=== PATIENT | male | born 1950 | race Caucasian/White ===

== ENCOUNTER → 2017-10-17 | Outpatient (CLI) | payer MEDICARE ==
[~2017-10-17] MED LIST: ASPI81TA50 PO; GLUC-32 PO; METO25TA91 PO; MULT-26 PO; OMEG1CAP23 PO; REGADENOSON 0.4 MG/5 ML SYRINGE ONE
== END | disposition home or self-care (01) ==
LOC: CFH 12:25
PROVIDERS: ATTEND Internal Medicine Cardiovascular Disease
DX: I21.19 ST elevation (STEMI) myocardial infarction involving other coronary artery of inferior wall (principal); I10 Essential (primary) hypertension; I25.9 Chronic ischemic heart disease, unspecified; R00.1 Bradycardia, unspecified
CPT/HCPCS: 78452; 93017; A9502; J2785

== ENCOUNTER 2017-11-29 05:41 | Day surgery (SDC) | payer MEDICARE ==
[~2017-11-29] VITALS: Ht 188 cm; Wt 111.4 kg
[~2017-11-29 05:41] MED LIST changes: -REGADENOSON 0.4 MG/5 ML SYRINGE ONE
[2017-11-29] MEDS ORDERED: SODIUM CHLORIDE 0.9% 1,000 ML IV ONE (06:08)
[2017-11-29 06:13] VITALS: BP 129/68
[2017-11-29] MEDS ORDERED: MAGN400T36 PO (06:21)
[2017-11-29] MEDS ORDERED: VALS80TA30 PO (06:21)
[2017-11-29] MEDS ORDERED: VERAPAMIL 2.5 MG/ML, 2ML ONE (06:24)
[2017-11-29] MEDS ORDERED: HEPARIN 1,000 UNITS/ML, 10ML ONE (06:24)
[2017-11-29] MEDS ORDERED: NITROGLYCERIN 5 MG/ML, 10ML ONE (06:24)
[2017-11-29] MEDS ORDERED: ASPIRIN 325 MG TABLET EC ONE (06:27)
[2017-11-29] MEDS ORDERED: ASPIRIN 325 MG TABLET EC PO ONE (06:30)
[2017-11-29] MEDS ORDERED: LIDOCAINE-MPF 2%, 2ML ONE (06:37)
[2017-11-29 06:47] LABS: BASOPHILS # (AUTO) 0.04 x10^3/uL (0-0.1); BASOPHILS % (AUTO) 1 % (0-1); EOSINOPHILS # (AUTO) 0.28 x10^3/uL (0-0.4); EOSINOPHILS % (AUTO) 4 % (1-7); LYMPHOCYTES # (AUTO) 1.75 x10^3/uL (1-3.4); LYMPHOCYTES % (AUTO) 23 % (22-44); MD NO; MEAN CORPUSCULAR HEMOGLOBIN 28.9 pg (27.5-34.5); MEAN CORPUSCULAR VOLUME 85.1 fL (81-97); MEAN PLATELET VOLUME 7.9 fL (7.4-10.4); MONOCYTES # (AUTO) 0.58 x10^3/uL (0.2-0.8); MONOCYTES % (AUTO) 8 % (2-9); NEUTROPHILS % (AUTO) 66 % (42-75); PLATELET COUNT 194 x10^3/uL (130-400); RED BLOOD COUNT 5.42 x10^6/uL (4.38-5.82); RED CELL DISTRIBUTION WIDTH 13.5 % (9.4-14.8)
[2017-11-29 06:59] LABS: ANION GAP 5 mmol/L (5-15); CALCIUM 8.7 mg/dL (8.5-10.1); CHLORIDE 107 mmol/L (98-107); CREATININE 1.18 mg/dL (0.7-1.3)
[2017-11-29] MEDS ORDERED: FENTANYL PF 100 MCG/2ML ONE (07:00)
[2017-11-29] MEDS ORDERED: TICAGRELOR 90 MG TABLET ONE (07:00)
[2017-11-29] MEDS ORDERED: BIVALIRUDIN 250 MG ONE (07:00)
[2017-11-29] MEDS ORDERED: MIDAZOLAM 1 MG/ML, 5ML ONE (07:00)
[2017-11-29] MEDS ORDERED: LIDOCAINE 2%, 50ML ONE (07:00)
[2017-11-29] MEDS ORDERED: SODIUM CHLORIDE 0.9% 1,000 ML IV SCH (08:22)
== END 2017-11-29 11:50 | disposition home or self-care (01) ==
LOC: CACL 05:41
PROVIDERS: ATTEND Internal Medicine Cardiovascular Disease
DX: I25.10 Atherosclerotic heart disease of native coronary artery without angina pectoris (principal); I10 Essential (primary) hypertension; I49.3 Ventricular premature depolarization; Z79.82 Long term (current) use of aspirin; Z79.899 Other long term (current) drug therapy
CPT/HCPCS: 36415; 80048; 85025; 93458; 99156; 99157; C1769; C1894; J1644; J2250; J3010; J3490; J7030; Q9967; J0583